=== PATIENT | male | born 1995 | race Caucasian/White ===

== ENCOUNTER 2018-11-21 23:26 | Emergency (ER) | payer OTHER, BC ==
[~2018-11-21] VITALS: Ht 172.7 cm; Wt 88.6 kg
[~2018-11-21 23:26] MED LIST: AMOXICILLIN/CL875 MG PO; AMOXICILLIN500 MG PO; AUGMENTIN875TAB PO; ERYTHROMYCIN BAS1 GM OD; FLAGYL250 MG PO; FLONASE NASAL50 MCG; NAPROSYN250 MG PO; NAPROSYN500 MG PO; NO; NO HOME MEDS; OMEPRAZOLE40 MG PO; ONDANSETRON4 MG OR; PREVACID30 M2 PO; RANITIDINE75 M1 OR; TESSALON PER100 MG PO; TESSALON200 MG PO; ZOFRAN ODT4 MG PO; ZPAK PO; [UNRECOGNIZED DRUG - OTHER] PO
[2018-11-22 00:01] VITALS: BP 146/85
== END 2018-11-22 00:01 | disposition home or self-care (01) | DRG 951 ==
LOC: ED 23:26
DX: Z77.9 Other contact with and (suspected) exposures hazardous to health (principal)

== ENCOUNTER 2019-09-23 21:12 | Emergency (ER) | payer OTHER ==
[~2019-09-23] VITALS: Ht 172.7 cm; Wt 90.0 kg
[2019-09-23 21:23] VITALS: BP 119/79
== END 2019-09-23 22:06 | disposition home or self-care (01) | DRG 864 ==
LOC: ED 21:12
DX: R50.9 Fever, unspecified (principal); Z20.828 Contact with and (suspected) exposure to other viral communicable diseases

== ENCOUNTER 2020-11-15 22:40 | Emergency (ER) | payer OTHER ==
[~2020-11-15] VITALS: Ht 172.7 cm; Wt 91.0 kg
[2020-11-16] MEDS ORDERED: ZOFRAN4 MG/TAB PO (01:10)
[2020-11-16] MEDS ORDERED: ROBITUSSIN AC10 ML PO (01:10)
[2020-11-16 01:25] VITALS: BP 112/76
== END 2020-11-16 01:25 | disposition home or self-care (01) | DRG 203 ==
LOC: ED 22:40
DX: J40 Bronchitis, not specified as acute or chronic (principal); R11.0 Nausea; Z86.16 Personal history of COVID-19

== ENCOUNTER 2021-03-26 09:17 | Emergency (ER) | payer OTHER ==
[~2021-03-26] VITALS: Ht 182.9 cm; Wt 112.0 kg
[~2021-03-26 09:17] MED LIST changes: +ROBITUSSIN AC10 ML PO; +ZOFRAN4 MG/TAB PO
[2021-03-26 10:05] LABS: IMMATURE GRANULOCYTES 0.1 % (0.0-5.0); MEAN CORPUSCULAR HGB 27.5 pG CALC (26.0-32.0); MEAN CORPUSCULAR HGB CONC 33.1 g/dL CAL (32.0-36.0); NEUT# 4.94 thou/uL (1.82-7.42); RED BLOOD COUNT 5.13 mill/uL (4.70-6.10); RED CELL DISTRI WIDTH 12.9 % (11.5-15.5)
[2021-03-26 10:20] LABS: ALBUMIN 4.5 g/dL (3.2-5.0); ALKALINE PHOSPHATASE 79 u/l (38-126); ANION GAP 13 (6-22 (CALC)); BILIRUBIN, TOTAL 0.5 mg/dL (0.0-1.4); BUN 14 mg/dL (9-20); BUN/CREATININE RATIO 20 (12-20 (CALC)); CARBON DIOXIDE 28 mmol/l (22-30); CHLORIDE 103 mmol/l (95-108); CREATININE 0.7 mg/dL (0.7-1.3); GFR > 60 ML/MIN (>=60 (CALC)); GFR FOR AFR.AMER. > 60 ML/MIN (>=60 (CALC)); HEMATOCRIT 42.6 % (39.0-50.0); HEMOGLOBIN 14.1 g/dl (14.0-18.0); LIPASE 58 u/l (23-300); POTASSIUM 4.1 mmol/l (3.5-5.1); SGOT/AST 36 u/l (17-59); SODIUM 140 mmol/l (137-146); TOTAL PROTEIN 8.2 g/dL (6.3-8.2)
[2021-03-26 11:38] VITALS: BP 121/76
== END 2021-03-26 11:15 | disposition home or self-care (01) | DRG 310 ==
LOC: ED 09:17
DX: R00.2 Palpitations (principal); Z86.16 Personal history of COVID-19; Z20.822 Contact with and (suspected) exposure to COVID-19

== ENCOUNTER 2024-05-29 10:17 | Emergency (ER) | payer OTHER ==
[2024-05-29] VITALS (14 sets, daily range): BP systolic 83–122; BP diastolic 34–67
[~2024-05-29] VITALS: Ht 182.9 cm; Wt 86.0 kg
[2024-05-29] MEDS ORDERED: SODIUM CHLORIDE 0.9% 1,000 ML IV ONE (10:50)
[2024-05-29] MEDS ORDERED: PROCHLORPERAZINE EDISYLATE 10 MG/2 ML SDV IV ONE (10:50)
[2024-05-29 11:36] LABS: BASO% 0.2 % (0-3); EOS% 0.1 % (0-8); IMMATURE GRANULOCYTES 0.2 % (0.0-5.0); LYMPH% 9.7 % (15-41); MEAN CORPUSCULAR HGB 28.6 pG CALC (26.0-32.0); MEAN CORPUSCULAR HGB CONC 33.6 g/dL CAL (32.0-36.0); MONO% 5.9 % (2-13); NEUT# 10.16 thou/uL (1.82-7.42); NEUT% 83.9 % (42-76); RED BLOOD COUNT 5.6 mill/uL (4.70-6.10); RED CELL DISTRI WIDTH 13.4 % (11.5-15.5)
[2024-05-29 11:54] LABS: HEMATOCRIT 47.6 % (39.0-50.0)
[2024-05-29 11:57] LABS: ALBUMIN 4.8 g/dL (3.2-5.0); BILIRUBIN, TOTAL 1.3 mg/dL (0.2-1.3); POTASSIUM 4.7 mmol/l (3.5-5.1); TOTAL PROTEIN 8.3 g/dL (6.3-8.2)
[2024-05-29] MEDS ORDERED: MECLIZINE HCL 25 MG/TAB PO ONE (12:35)
[2024-05-29] MEDS ORDERED: MECLIZINE25 M1 PO (13:37)
== END 2024-05-29 13:57 | disposition home or self-care (01) | DRG 149 ==
LOC: ED 10:17
PROVIDERS: Family Medicine
DX: H81.10 Benign paroxysmal vertigo, unspecified ear (principal); Z20.822 Contact with and (suspected) exposure to COVID-19
CPT/HCPCS: J0780